=== PATIENT | female | born 2000 | race Caucasian/White ===

== ENCOUNTER 2021-07-18 06:50 | Day surgery (SDC) | payer OTHER ==
[~2021-07-18 06:50] MED LIST: Lactated Ringers 1,000 ML IV SCH
[2021-07-18] MEDS ORDERED: Midazolam 1 MG/ML 2 ML SDV ONE (07:01)
[2021-07-18] MEDS ORDERED: Dexmedetomidine 200 MCG/2 ML SDV ONE (07:01)
[2021-07-18] MEDS ORDERED: fentaNYL 100 MCG/2 ML SDV ONE (07:01)
[2021-07-18] MEDS ORDERED: Propofol 200 MG/20 ML SDV ONE ×2 (07:01→08:22)
[2021-07-18] MEDS ORDERED: Lidocaine 1% 5 ML VIAL ONE (07:02)
[2021-07-18] MEDS ORDERED: Water For Injection, Sterile 20 ML ONE (07:03)
[2021-07-18] MEDS ORDERED: Bupivacaine 0.25%/EPINEPHrine 1:200,000 10 ML SDV ONE (07:21)
[2021-07-18] MEDS ORDERED: ePHEDrine 50 MG/ML SDV ONE ×2 (07:24→08:16)
[2021-07-18] MEDS ORDERED: Dexamethasone 4 MG/ML 5 ML MDV ONE (07:24)
[2021-07-18] MEDS ORDERED: Rocuronium Bromide 50 MG/5 ML Syringe ONE (07:24)
[2021-07-18] MEDS ORDERED: Metoclopramide 10 MG/2 ML SDV IVPUSH PRN (07:32)
[2021-07-18] MEDS ORDERED: Albuterol 0.083% 2.5 MG/3 ML Neb Soln NEB PRN (07:32)
[2021-07-18] MEDS ORDERED: fentaNYL 100 MCG/2 ML SDV IVPUSH PRN (07:32)
[2021-07-18] MEDS ORDERED: HYDROmorphone 1 MG/ML Syringe IVPUSH PRN (07:32)
[2021-07-18] MEDS ORDERED: Ondansetron 4 MG/2 ML SDV IVPUSH PRN (07:32)
[2021-07-18] MEDS ORDERED: Naloxone 0.4 MG/ML SDV IVPUSH PRN (07:32)
[2021-07-18] MEDS ORDERED: ceFAZolin 1 GM in Premix Bag 1 BAG IV SCH (08:00)
[2021-07-18] MEDS ORDERED: Ondansetron 4 MG/2 ML SDV ONE (08:19)
[2021-07-18] MEDS ORDERED: HYDROmorphone 2 MG/ML Syringe ONE (08:34)
[2021-07-18] MEDS ORDERED: Acetaminophen/HYDROcodone 325-5 MG Tab PO ONE (09:49)
== END 2021-07-18 10:40 | disposition home or self-care (01) ==
LOC: MW.SDS 06:50
PROVIDERS: ATTEND Orthopaedic Surgery
DX: M23.300 Other meniscus derangements, unspecified lateral meniscus, right knee (principal); J45.909 Unspecified asthma, uncomplicated; F41.9 Anxiety disorder, unspecified; Z98.890 Other specified postprocedural states
CPT/HCPCS: 29881; 81025; A9270; J0131; J0690; J1100; J1170; J2250; J2370; J2405; J2704; J3490; J7120; 01400; J3010